=== PATIENT | male | born 1965 | race Caucasian/White ===

== ENCOUNTER 2017-07-27 05:31 | Emergency (ER) | payer SELFPAY ==
[~2017-07-27] VITALS: Ht 167.6 cm; Wt 79.5 kg
[~2017-07-27 05:31] MED LIST: CIPR750T10 PO; FLAG500T PO; LORTA5 PO; PROM25TA5 PO
[2017-07-27] MEDS ORDERED: SODIUM CHLOR 0.9% 1000 ML INJ 1,000 ML IV ONE (05:33)
[2017-07-27 05:42] VITALS: BP 116/83; PULSE 82; RESP 16; TEMP 98; O2SAT 98
[2017-07-27] MEDS ORDERED: SODIUM CHLORIDE 0.9% FLUSH 10 ML FLUSH IVF PRN (05:45)
[2017-07-27 05:55] LABS: AUTOMATED NEUTROPHIL # 4.9 TH/MM3 (1.8-7.7); BASOPHIL # 0.1 TH/MM3 (0-0.2); BASOPHIL % 0.7 % (0.0-2.0); EOSINOPHIL # 0.3 TH/MM3 (0-0.4); EOSINOPHIL % 3.9 % (0.0-4.0); HEMATOCRIT 45.4 % (39.0-51.0); HEMOGLOBIN 15.1 GM/DL (13.0-17.0); LYMPH % 33.5 % (9.0-44.0); MEAN CORPUSCULAR HEMOGLOBIN 30.6 PG (27.0-34.0); MEAN CORPUSCULAR HGB CONC 33.3 % (32.0-36.0); MEAN PLATELET VOLUME 8.3 FL (7.0-11.0); MONO % 5.4 % (0.0-8.0); MONOCYTE # 0.5 TH/MM3 (0-0.9); NEUT % 56.5 % (16.0-70.0); PLATELET COUNT 324 TH/MM3 (150-450); RED BLOOD COUNT 4.93 MIL/MM3 (4.50-5.90); RED CELL DISTRIBUTION WIDTH 15.1 % (11.6-17.2); WHITE BLOOD COUNT 8.8 TH/MM3 (4.0-11.0)
[2017-07-27 06:04] LABS: MAGNESIUM 2.4 MG/DL (1.5-2.5)
[2017-07-27 06:08] LABS: CHLORIDE 106 MEQ/L (98-107); SODIUM (NA) 138 MEQ/L (136-145)
[2017-07-27 06:11] LABS: ALBUMIN 3.8 GM/DL (3.4-5.0); BICARBONATE 25.1 MEQ/L (21.0-32.0); BLOOD UREA NITROGEN 15 MG/DL (7-18); CALCIUM 8.8 MG/DL (8.5-10.1)
[2017-07-27 06:12] LABS: GLUCOSE,RANDOM 95 MG/DL (74-106)
[2017-07-27 06:14] LABS: ALT (GPT) 302 U/L (12-78); AST (GOT) 136 U/L (15-37)
[2017-07-27 06:15] LABS: CREATININE 0.94 MG/DL (0.60-1.30); GLOMERULAR FILTRATION RATE 85 ML/MIN (>89)
[2017-07-27 06:16] LABS: TOTAL BILIRUBIN ADULT 0.2 MG/DL (0.2-1.0); TOTAL PROTEIN 8.4 GM/DL (6.4-8.2)
--- NOTE | 2017-07-27 06:16 | RADRPT ---
EXAM DATE/TIME: 07/27/2017 05:48 [facility] COMPARISON: No previous studies available for comparison. INDICATIONS : Chest pain, fractured ribs. MEDICAL HISTORY : Diverticulitis. Ulcers. Epilepsy. SURGICAL HISTORY : Appendectomy. Colonectomy. ENCOUNTER: Initial ACUITY: 3 weeks PAIN SCORE: 10/10 LOCATION: Left chest FINDINGS: A single view of the chest demonstrates the lungs to be symmetrically aerated without evidence of mas s, infiltrate or effusion. The cardiomediastinal contours are unremarkable. Osseous structures are intact. CONCLUSION: No acute disease. Bryn Pineda MD on July 27, 2017 at 6:14 Board Certified Radiologist. This report was verified electronically.
[2017-07-27 06:17] LABS: ALKALINE PHOSPHATASE 124 U/L (45-117)
--- NOTE | 2017-07-27 06:18 | RADRPT ---
EXAM DATE/TIME: 07/27/2017 05:58 [facility] COMPARISON: No previous studies available for comparison. INDICATIONS : Syncope. RADIATION DOSE: 68.02 CTDIvol (mGy) MEDICAL HISTORY : Hypertension. Seizures. SURGICAL HISTORY : None. ENCOUNTER: Initial ACUITY: 1 day PAIN SCALE: 0/10 LOCATION: cranial TECHNIQUE: Multiple contiguous axial images were obtained of the head. Using automated exposure control and adj ustment of the mA and/or kV according to patient size, radiation dose was kept as low as reasonably a chievable to obtain optimal diagnostic quality images. DICOM format image data is available electro nically for review and comparison. FINDINGS: CEREBRUM: The ventricles are normal for age. No evidence of midline shift, mass lesion, hemorrhage or acute in farction. No extra-axial fluid collections are seen. POSTERIOR FOSSA: The cerebellum and brainstem are intact. The 4th ventricle is midline. The cerebellopontine angle i s unremarkable. EXTRACRANIAL: The visualized portion of the orbits is intact. SKULL: The calvaria is intact. No evidence of skull fracture. CONCLUSION: Normal examination for a patient of this age. Bryn Pineda MD on July 27, 2017 at 6:16 Board Certified Radiologist. This report was verified electronically.
[2017-07-27 06:20] LABS: PHENYTOIN (DILANTIN) 0.7 MCG/ML (10.0-20.0)
--- NOTE | 2017-07-27 06:20 | RADRPT ---
EXAM DATE/TIME: 07/27/2017 05:58 [facility] COMPARISON: No previous studies available for comparison. INDICATIONS : Trauma, fall. RADIATION DOSE: 26.41 CTDIvol (mGy) MEDICAL HISTORY : Hypertension. Seizures. SURGICAL HISTORY : None. ENCOUNTER: Initial ACUITY: 1 day PAIN SCALE: 0/10 LOCATION: neck TECHNIQUE: Volumetric scanning of the cervical spine was performed. Multiplanar reconstructions in the sagittal, coronal and oblique axial planes were performed. Using automated exposure control and adjustment o f the mA and/or kV according to patient size, radiation dose was kept as low as reasonably achievable to obtain optimal diagnostic quality images. DICOM format image data is available electronically f or review and comparison. FINDINGS: There is moderate to severe degenerative disc disease between C2 and C7 with mild canal stenosis and lateral recess encroachment. No acute fracture or spondylolisthesis. No prevertebral soft tissue swel ling. CONCLUSION: 1. No acute findings. Moderate degenerative disc disease. Bryn Pineda MD on July 27, 2017 at 6:17 Board Certified Radiologist. This report was verified electronically.
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
[2017-07-27] MEDS ORDERED: PHENYTOIN INJ 1,000 MG in SODIUM CHLORIDE 0.9% INJ 100 ML IV ONE (06:30)
[2017-07-27] MEDS ORDERED: DILA100C PO ×2 (06:31→07:28)
[2017-07-27] MEDS ORDERED: LORA2TAB7 PO (06:33)
[2017-07-27] MEDS ORDERED: LISI10TA PO (06:33)
[2017-07-27] MEDS ORDERED: SOMA250T PO (06:33)
[2017-07-27] MEDS ORDERED: ONDANSETRON HCL 4 MG/2 ML VIAL IV PUSH ONE (06:45)
[2017-07-27] MEDS ORDERED: oxyCODONE/ACETAMINOPHEN 5 MG/325 MG TAB PO ONE (06:45)
--- NOTE | 2017-07-27 12:18 | EKG ---
Date Performed: 07/27/2017 Time Performed: 06:14:07 PTAGE: 52 years EKG: Sinus rhythm NORMAL ECG NO PREVIOUS TRACING DOCTOR: Christiano Reed Interpretating Date/Time 07/27/2017 12:15:13
== END 2017-07-27 07:30 | disposition home or self-care (01) ==
LOC: PHED 05:31
DX: G40.909 Epilepsy, unspecified, not intractable, without status epilepticus (principal); K70.9 Alcoholic liver disease, unspecified; M50.31 Other cervical disc degeneration, high cervical region; R42 Dizziness and giddiness; R51 Headache; I10 Essential (primary) hypertension; F17.200 Nicotine dependence, unspecified, uncomplicated; Z87.19 Personal history of other diseases of the digestive system; Z79.899 Other long term (current) drug therapy
CPT/HCPCS: 70450; 71045; 72125; 80053; 80185; 80307; 83735; 85025; 93005; 96361; 96365; 99285; J1165; J7030